=== PATIENT | male | born 1990 ===

== ENCOUNTER 2022-10-25 18:49 | Outpatient (REF) | payer BC, SELFPAY ==
[2022-10-27 10:49] LABS: Hepatitis C Ab w Rflx HCV PCR Negative (Negative)
[2022-10-27 10:59] LABS: HIV-1/2 Ag & Ab Screen Negative (Negative)
[2022-10-27 11:15] LABS: Syphilis Serology (RPR) Positive (Negative)
[2022-10-27 13:58] LABS: Chlamydia Result Negative (Negative); GC Result Negative (Negative)
[2022-10-28 13:38] LABS: Chlamydia Result Positive (Negative); GC Result Negative (Negative)
[2022-10-29 10:57] LABS: RPR w/Reflex Negative (Negative)
[2022-10-29 14:13] LABS: Syphilis Ab, TP-PA Negative (Negative)
== END 2022-10-25 18:50 | disposition home or self-care (01) ==
LOC: LBN 18:49
PROVIDERS: Visit Provider Nurse Practitioner Family
DX: Z11.3 Encounter for screening for infections with a predominantly sexual mode of transmission (principal); Z11.59 Encounter for screening for other viral diseases; Z11.4 Encounter for screening for human immunodeficiency virus [HIV]
CPT/HCPCS: 0064U; 86780; 86803; 87389; 87491; 87591; 86592

== ENCOUNTER 2024-08-25 11:59 | Outpatient (REF) | payer BC, SELFPAY ==
[2024-08-25 16:22] LABS: Abs Immature Grans 0.03 10^3/uL (0.0-0.06); Absolute Basophil Count 0.04 10^3/uL (0.0-0.2); Absolute Eosinophil Count 0.06 10^3/uL (0.0-0.7); Absolute Lymphocyte Count 1.11 10^3/uL (1.2-3.4); Absolute Monocyte Count 0.79 10^3/uL (0.1-0.8); Absolute Neutrophil Count 4.28 10^3/uL (1.2-6.7); Basophils % 0.6 %; HCT 41.2 % (40.0-50.0); HGB 14.4 g/dL (13.5-17.5); Immature Grans % 0.5 %; Lymphocytes % 17.6 %; MCH 32.7 pg (27.0-33.0); MCV 94 fL (80-95); MPV 11.2 fL (8.0-11.0); Monocytes % 12.5 %; Neutrophils % 67.8 %; Platelet Count 264 10^3/uL (130-400); RDW 11.8 % (11.8-14.1); RDW-SD 40.7 fL; WBC 6.31 10^3/uL (4.4-10.8)
[2024-08-25 16:41] LABS: TSH (W/Ref FT4) 1.59 uIU/mL (0.36-3.74)
== END 2024-08-25 12:00 | disposition home or self-care (01) ==
LOC: LBN 11:59
PROVIDERS: Visit Provider Physician Assistant Medical
DX: R53.83 Other fatigue (principal)
CPT/HCPCS: 84443; 85025